=== PATIENT | female | born 1960 | race Caucasian/White ===

== ENCOUNTER 2016-11-03 09:57 | Emergency (ER) | payer BC ==
[~2016-11-03] VITALS: Ht 175.3 cm; Wt 74.5 kg
[2016-11-03 11:09] LABS: HEMATOCRIT 40.3 % (36.0-46.0); MCHC 33.5 G/DL (30.0-36.0); MCV 89.6 FL (83-99); MEAN PLAT.VOLUME 12.1 uM^3 (9.5-12.4); PLATELET COUNT 153 K/uL (156-360); RBC DIS.WIDTH-CV 12.2 % (11.8-14.6); RBC DIS.WIDTH-SD 40.2 % (39-53); WHITE BLOOD COUNT 3.5 K/uL (4.1-10.2)
[2016-11-03 11:23] LABS: CHLORIDE 106 mEq/L (99-109); POTASSIUM 3.9 mEq/L (3.7-5.4); SODIUM 142 mEq/L (136-147)
[2016-11-03 11:25] LABS: GLUCOSE 97 mg/dL (70-99)
[2016-11-03 11:26] LABS: ANION GAP 11 MEQ/L (2-14)
[2016-11-03 11:28] LABS: SERUM ETHYL ALCOHOL < 10 mg/dL
[2016-11-03 11:29] LABS: GFR ESTIMATE (CALCULATED) > 59 mL/min/
[2016-11-03 11:30] LABS: UREA NITROGEN (BUN) 21 mg/dL (9-23)
[2016-11-03] MEDS ORDERED: THIAMINE HCL100 MG PO (12:19)
[2016-11-03] MEDS ORDERED: LIBRIUM25 MG PO (12:19)
[2016-11-03 12:55] VITALS: BP 109/78
== END 2016-11-03 12:56 | disposition home or self-care (01) ==
LOC: EME 09:57
PROVIDERS: Emergency Medicine
DX: F10.239 Alcohol dependence with withdrawal, unspecified (principal); R11.2 Nausea with vomiting, unspecified; R19.7 Diarrhea, unspecified; F32.9 Major depressive disorder, single episode, unspecified; F41.1 Generalized anxiety disorder
CPT/HCPCS: 80048; 85027; 90839; 99281; 99285; G0480; J3411; J3475

== ENCOUNTER 2017-08-09 09:29 | Emergency (ER) | payer BC ==
[~2017-08-09] VITALS: Ht 180.3 cm; Wt 80.8 kg
[~2017-08-09 09:29] MED LIST: LIBRIUM25 MG PO; THIAMINE HCL100 MG PO
[2017-08-09 09:50] LABS: HEMATOCRIT 40.5 % (36.0-46.0); HEMOGLOBIN 13.9 G/DL (11.9-15.5); MCH 31.2 PG (29.0-34.0); MCHC 34.3 G/DL (30.0-36.0); MCV 90.8 FL (83-99); PLATELET COUNT 196 K/uL (156-360); RBC DIS.WIDTH-CV 12.4 % (11.8-14.6); RBC DIS.WIDTH-SD 41.1 % (39-53); RED BLOOD COUNT 4.46 M/uL (3.80-5.20); WHITE BLOOD COUNT 5.8 K/uL (4.1-10.2)
[2017-08-09 10:00] LABS: CHLORIDE 104 mEq/L (99-109); POTASSIUM 4.4 mEq/L (3.7-5.4); SODIUM 138 mEq/L (136-147)
[2017-08-09 10:02] LABS: GLUCOSE 103 mg/dL (70-99)
[2017-08-09 10:06] LABS: CREATININE 0.7 mg/dL (0.6-1.3); GFR ESTIMATE (CALCULATED) > 59 mL/min/
[2017-08-09 10:07] LABS: UREA NITROGEN (BUN) 17 mg/dL (9-23)
[2017-08-09 10:10] LABS: TROP-I INTERPRETATION NEGATIVE; TROPONIN-I < 0.01 ng/mL (0.0-0.30)
[2017-08-09 13:18] LABS: TROP-I INTERPRETATION NEGATIVE; TROPONIN-I < 0.01 ng/mL (0.0-0.30)
[2017-08-09 14:10] VITALS: BP 120/71
== END 2017-08-09 14:12 | disposition home or self-care (01) ==
LOC: EME 09:29
PROVIDERS: Nurse Practitioner Family
DX: F41.9 Anxiety disorder, unspecified (principal); R06.02 Shortness of breath; R07.89 Other chest pain; M79.7 Fibromyalgia; Z88.0 Allergy status to penicillin
CPT/HCPCS: 71020; 80048; 84484; 85027; 93005; 99281; 99285